=== PATIENT | female | born 1975 | race Caucasian/White ===

== ENCOUNTER 2020-12-07 11:04 | Emergency (ER) | payer OTHER ==
--- NOTE | 2020-12-07 11:09 | NUR ---
PT W/C ASSISTED TO BED 9.
--- NOTE | 2020-12-07 11:12 | NUR ---
PATIENT LEFT WITHOUT BEING SEEN BY DR. FUNEZ. NO FURTHER CARE PROVIDED FOR PATIENT.
== END 2020-12-07 11:12 | disposition left against medical advice (07) ==
LOC: MED 11:04
DX: R06.02 Shortness of breath (principal); Z53.21 Procedure and treatment not carried out due to patient leaving prior to being seen by health care provider